=== PATIENT | male | born 1980 | race Caucasian/White ===

== ENCOUNTER 2018-07-24 09:42 | Day surgery (SDC) | payer BC ==
[2018-07-24] MEDS ORDERED: Marcaine 0.5% SDV 10 ML IJ ONE (09:43)
[2018-07-24] MEDS ORDERED: Xylocaine 1% Vial 30 ML PF IJ ONE (09:43)
[2018-07-24] MEDS ORDERED: Depo-Medrol 40 MG/ML IM ONE (09:43)
--- NOTE | 2018-07-24 13:16 | XRAY ---
Indication: Right shoulder injection. Intraoperative fluoroscopy was provided for 17 seconds. Single digital spot image submitted for interpretation demonstrates needle tip projecting superior medial humeral head. Small amount of contrast injected for needle tip placement. Correlate with intraoperative findings/report.
--- NOTE | 2018-07-24 13:19 | XRAY ---
17 seconds fluoroscopy time in surgery for right shoulder injection.
== END 2018-07-24 12:26 | disposition home or self-care (01) ==
LOC: CLIN -PAIN 09:42 → SDC-PAIN 09:42
PROVIDERS: ATTEND Psychiatry & Neurology Pain Medicine
DX: M19.019 Primary osteoarthritis, unspecified shoulder (principal); Z79.899 Other long term (current) drug therapy
CPT/HCPCS: 20611; 73030; 77002; J1030; J2001; Q9967